=== PATIENT | female | born 1980 | race Caucasian/White ===

== ENCOUNTER 2017-11-23 10:08 | Emergency (ER) | payer BC ==
[~2017-11-23] VITALS: Ht 167.6 cm; Wt 109.8 kg
[2017-11-23] MEDS ORDERED: SODIUM CHLORIDE 0.9% 1000ML 1,000 ML IV STA (10:45)
[2017-11-23] MEDS ORDERED: ONDANSETRON HCL INJ 2 MG/ML VIAL IV STA (10:45)
[2017-11-23] MEDS ORDERED: FLAGYL250 MG (11:16)
[2017-11-23] MEDS ORDERED: ZOFRAN ODT4 MG (11:17)
[2017-11-23] MEDS ORDERED: IOPAMIDOL 300MG/ML 100 ML INFUS..BTL IV ONE (12:15)
[2017-11-23 13:55] VITALS: BP 132/78
== END 2017-11-23 13:15 | disposition home or self-care (01) ==
LOC: FSED 10:08
DX: R11.2 Nausea with vomiting, unspecified (principal); R10.13 Epigastric pain; R19.7 Diarrhea, unspecified; K52.9 Noninfective gastroenteritis and colitis, unspecified
CPT/HCPCS: 99284; J2405; J7030; Q9967

== ENCOUNTER 2017-11-29 15:42 | Emergency (ER) | payer BC ==
[~2017-11-29] VITALS: Ht 167.6 cm; Wt 111.6 kg
[~2017-11-29 15:42] MED LIST: FLAGYL250 MG; ZOFRAN ODT4 MG
[2017-11-29] MEDS: SODIUM CHLORIDE 0.9% 1000ML 1,000 ML ONE (17:03)
[2017-11-29] MEDS: PROMETHAZINE HCL (IM) 25 MG/ML VIAL IM ONE (17:03)
[2017-11-29] MEDS: ONDANSETRON HCL INJ 2 MG/ML VIAL IV ONE (17:03)
[2017-11-29] MEDS ORDERED: PROMETHAZINE HC25 M1 PO (18:26)
[2017-11-29] MEDS ORDERED: ZOFRAN ODT4 MG PO (18:26)
== END 2017-11-29 18:41 | disposition home or self-care (01) ==
LOC: FSED 15:42
DX: R10.84 Generalized abdominal pain (principal); R11.2 Nausea with vomiting, unspecified
CPT/HCPCS: 99283; J2405; J2550; J7030

== ENCOUNTER → 2017-11-30 | Day surgery (SDC) | payer BC ==
[~2017-11-30] MED LIST changes: +ACETAMINOPHEN 1000 MG/100 ML 100 ML IV ONE; +FENTANYL CITRATE/PF 100MCG/2 ML INJ ONE; +GLUCAGON FOR INJ 1 MG VIAL ONE; +HYOSCYAMINE SULFATE 0.5 MG/ML AMP ONE; +LIDOCAINE HCL 2% LOCAL INJ 5 ML SDV VIAL INJ ONE; +MIDAZOLAM HCL 2 MG/2 ML VIAL ONE; +ONDANSETRON HCL INJ 2 MG/ML VIAL ONE; +PROMETHAZINE HC25 M1 PO; +PROPOFOL IV EMULSION 10 MG/ML 50 ML VIAL ONE; +ZOFRAN ODT4 MG PO
--- OUTSIDE RECORDS SUMMARY | 2017-11-30 12:14 | XMS REPORT | Continuity of Care Document ---
Author Author [facility] Organization [facility] Address [address] [place] [address] Phone Unavailable Care Team Providers Care Tech Intern Name Role Phone NO, PCP PCP Unavailable Insurance Providers Guarantor [employer] Address [address] [place] [address] Email NA [facility] Policy Number [id number] Subscriber's Name Dimitry Salinas Relationship 01 Advance Directives Directive Response Recorded Date/Time Does the patient have an advance directive? No 11/23/17 11:11am Do you have a Directive to Physician? No 11/29/17 4:34pm Do you have a Medical Power of [employer]? No 11/29/17 4:34pm Do you have an out of hospital Do Not Resuscitate Order? No 11/29/17 4:34pm Do you have any special needs we should be aware of? No 11/29/17 4:34pm Do you have a support person here with you today? No 11/29/17 4:34pm Did patient receive Notice of Privacy Practices? Yes 11/29/17 4:34pm Did patient receive patient rights and responsibilities? Yes 11/29/17 4:34pm Problems No problem information available. Medications Current Home Medications Medication Dose Units Route Directions Days Qty Instructions Start Date Metronidazole (Flagyl) 250 Mg Tablet Ondansetron (Zofran Odt) 4 Mg Tab.rapdis 4 Mg Every 6 Hours Ondansetron (Zofran Odt) 4 Mg Tab.rapdis 8 Mg Oral Every 6 Hours as needed for Nausea 29 december sub tabs for ODT 11/29/17 Promethazine Hcl 25 Mg Tablet 25 Mg Oral Every 6 Hours 10 Tab 11/29 Social History Smoking Status Start Date Stop Date Former smoker Hospital Discharge Instructions No hospital discharge instruction information available. Plan of Care Discharge Date 11/29/17 6:41pm Disposition HOME, SELF-CARE Condition at Discharge Stable Instructions/Education Provided Abdominal Pain - Adult Prescriptions See Medication Section Additional Instructions/Education You were provided with Dr. Bello's office instructions for bowel prep tonight for OR tomorrow. Be sure to follow it exactly. Take your nausea medications prescribed here as scheduled - do not wait for nausea or vomiting to develop. This will ensure you are able to complete the bowel prep. Functional Status No functional status information available. Allergies, Adverse Reactions, Alerts Allergen Type Severity Reaction Status Last Updated Codeine Allergy Unknown HIVES Active 11/23/17 Hydrocodone Allergy Unknown HIVES Active 11/23/17 Acetaminophen Allergy Unknown HIVES Active 11/23/17 Clindamycin Allergy Unknown HIVES Active 11/23/17 Meperidine Allergy Unknown HIVES Active 11/23/17 Vancomycin Allergy Unknown HIVES Active 11/23/17 Latex Allergy Unknown Active 11/23/17 Immunizations No immunization information available. Vital Signs Acute Vital Signs Vital Response Date/Time Temperature (Fahrenheit) 97.8 degrees F (97.6 - 99.5) 11/23/2017 1:55pm Pulse Pulse Rate (adult) 88 bpm (60 - 90) 11/23/2017 1:55pm Pulse Pulse Rate (adult) 88 bpm (60 - 90) 11/23/2017 1:55pm Respiratory Rate 20 bpm (12 - 24) 11/23/2017 1:55pm Blood Pressure 132/78 mm Hg 11/23/2017 1:55pm Blood Pressure 132/78 mm Hg 11/23/2017 1:55pm Height 5 ft 6 in 11/29/2017 3:44pm Weight 246 lb 11/29/2017 3:44pm Body Mass Index 39.7 kg/m^2 11/29/2017 3:44pm Results No relevant diagnostic test, laboratory data and/or discharge summary information available. Procedures No procedure information available. Encounters Encounter Location Arrival/Admit Date Discharge/Depart Date Attending Provider Departed Emergency Room [facility] 11/29/17 3:42pm 6:41pm JOE LOZANO MD Departed Emergency Room [facility] 11/23/17 10:08am 11/23 1:15pm WILIAM WATSON MD
== END | disposition home or self-care (01) ==
LOC: OR 12:11
PROVIDERS: ATTEND Internal Medicine Gastroenterology
DX: K29.50 Unspecified chronic gastritis without bleeding (principal); K63.5 Polyp of colon; K31.7 Polyp of stomach and duodenum; K50.10 Crohn's disease of large intestine without complications; K59.00 Constipation, unspecified; K21.0 Gastro-esophageal reflux disease with esophagitis; K64.8 Other hemorrhoids; F31.9 Bipolar disorder, unspecified; F41.9 Anxiety disorder, unspecified; G47.33 Obstructive sleep apnea (adult) (pediatric); Z68.41 Body mass index [BMI] 40.0-44.9, adult; Z87.891 Personal history of nicotine dependence; Z80.0 Family history of malignant neoplasm of digestive organs
CPT/HCPCS: 43239; 45380; 45384; J1610; J1980; J2001; J2250; J2405

== ENCOUNTER → 2018-01-31 | Outpatient (CLI) | payer BC ==
[~2018-01-31] MED LIST changes: -ACETAMINOPHEN 1000 MG/100 ML 100 ML IV ONE; -FENTANYL CITRATE/PF 100MCG/2 ML INJ ONE; -GLUCAGON FOR INJ 1 MG VIAL ONE; -HYOSCYAMINE SULFATE 0.5 MG/ML AMP ONE; -LIDOCAINE HCL 2% LOCAL INJ 5 ML SDV VIAL INJ ONE; -MIDAZOLAM HCL 2 MG/2 ML VIAL ONE; -ONDANSETRON HCL INJ 2 MG/ML VIAL ONE; -PROPOFOL IV EMULSION 10 MG/ML 50 ML VIAL ONE
--- NOTE | 2018-01-31 10:08 | Diagnostic Imaging Report ---
TECHNIQUE: Computed tomography imaging of the RIGHT foot was performed WITHOUT injected contrast. HISTORY: Right foot pain, subluxation of the tarsal metatarsal joint. COMPARISON: None available. DISCUSSION: Bone: No acute fracture or osteonecrosis. Joints: Normal alignment of the tarsometatarsal joints. Soft Tissues: Soft tissue swelling of the foot. No fluid collections. Dorsal and plantar calcaneal views of legs. IMPRESSION: Soft tissue swelling of the foot without fracture or malalignment. Signed by: Dr. Dru Burt M.D. on 01/31/2018 10:04 AM
== END ==
LOC: CT 08:26
PROVIDERS: ATTEND Podiatrist Foot & Ankle Surgery
DX: S93.321A Subluxation of tarsometatarsal joint of right foot, initial encounter (principal)